=== PATIENT | male | born 1935 | race Caucasian/White ===

== ENCOUNTER 2016-11-26 12:34 | Emergency (ER) | payer MEDICARE ==
[2016-11-26 12:50] VITALS: PULSE 71
[2016-11-26] MEDS ORDERED: Adacel Vial IM ONE ×2 (12:56→13:21)
[2016-11-26] MEDS ORDERED: KEFZOL 1 GM/50 ML PREMIX** 50 ML IV ONE ×2 (12:56→13:18)
[2016-11-26 13:29] LABS: BASOPHIL % 0.7 % (0.0-0.4); Granulocytes % 61.5 % (36.0-66.0); Lymphocytes % 17.8 % (24.0-44.0); Mean Cell Volume 104.3 fl (78-100); Mean Platelet Volume 13.1 fl (6-9.5); Red Blood Count 3.48 M/mm3 (4.1-5.6); Red Cell Distribution Width 16.5 % (11.5-14.0); White Blood Count 4.4 K/mm3 (4.0-10.5)
[2016-11-26 13:44] LABS: ANION GAP 10.4 MEQ/L (5-15); BLOOD UREA NITROGEN 18 mg/dL (9-20); CHLORIDE 100 mEq/L (98-107); Glucose 168 MG/DL (70-110); Potassium 4.5 mEq/L (3.5-5.1); SODIUM 137 mEq/L (136-145)
--- NOTE | 2016-11-26 13:46 | ERPHSYRPT ---
- History of Present Illness Time Seen by Provider: 11/26/16 12:52 Source: patient, family Patient Subjective Stated Complaint: Pt states he had a knot show up on his right forearm. Pt states it is very painful and looks much worse now than it did earlier. Pt states it was bleeding and had a little pus coming out of it this morning. Triage Nursing Assessment: Pt alert and oriented x3. skin pink warm and dry. afebrile. large erythmatic, inflamed area on left forearm. hot and tender to touch. no drainage noted at this time Physician History: CC: redness left arm Hx: 81 y/o patient of dr Maddox with hx of DM. He had left arm area that raised , became red, and drained some clear pus. No fever or chills. Unsure last tetanus vaccine. Started last night. Occurred: other (yesterday) Severity of Pain-Max: moderate Severity of Pain-Current: mild Allergies/Adverse Reactions: No Known Drug Allergies Allergy (Verified 11/26/16 12:42) Home Medications: Morphine Sulfate [Morphine Sulfate ER] 60 mg PO Q4H 08/01/14 [History] Rosuvastatin Calcium [Crestor] 20 mg PO HS 08/01/14 [History] Pioglitazone HCl 30 mg PO DAILY 07/18/15 [History] Polyethylene Glycol 3350 [Miralax] 17 gm PO BIDPRN PRN 07/18/15 [History] Gabapentin [Neurontin] 300 mg PO TID 02/14/16 [History] Insulin Glargine [Lantus Insulin] 50 unit SQ DAILY 02/14/16 [History] Metoprolol Tartrate 50 mg [Lopressor 50 MG] 50 mg PO BID 02/14/16 [History ] Amiodarone HCl 200 mg [Cordarone 200 MG] 200 mg PO DAILY 11/26/16 [History ] Apixaban [Eliquis] 2.5 mg PO BID 11/26/16 [History] Enalapril Maleate 5 mg [Vasotec 5 MG] 15 mg PO DAILY 11/26/16 [History] Fluticasone Propionate [Flonase NASAL] 2 puff NS UD PRN 11/26/16 [History] Furosemide 40 mg [Lasix 40 MG] 40 mg PO DAILY 11/26/16 [History] Insulin Aspart [NovoLOG Insulin] 1 unit SQ UD PRN 11/26/16 [History] Omeprazole 20 MG [Prilosec 20 mg] 20 mg PO BID 11/26/16 [History] Oxycodone / APAP 10/325 mg [Oxycodone-Acetaminophen 10-325] 1 tab PO Q4HPRN PRN 11/26/16 [History] Potassium Chloride 10 Meq Tab* [Klor Con 10 MEQ] 10 meq PO BID 11/26/16 [ History] Ranitidine HCl [Zantac] 300 mg PO DAILY 11/26/16 [History] Hx Tetanus, Diphtheria Vaccination/Date Given: Yes (<5 years) Hx Influenza Vaccination/Date Given: Yes Hx Pneumococcal Vaccination/Date Given: No - Review of Systems Constitutional: No Fever, No Chills Eyes: No Symptoms Ears, Nose, & Throat: No Symptoms Respiratory: No Cough Cardiac: No Chest Pain Abdominal/Gastrointestinal: No Abdominal Pain Skin: Skin Lesions Neurological: No Focal Weakness, No Parasthesia All Other Systems: Reviewed and Negative - Past Medical History Pertinent Past Medical History: Yes Neurological History: No Pertinent History ENT History: No Pertinent History Cardiac History: High Cholesterol, Hypertension Respiratory History: No Pertinent History Endocrine Medical History: Diabetes Type II Musculoskeletal History: Arthritis, Fractures GI Medical History: GERD, Other History: No Pertinent History Psycho-Social History: No Pertinent History Male Reproductive Disorders: No Pertinent History Other Medical History: pt c/o stomach pain that radiates - Past Surgical History Past Surgical History: Yes Neuro Surgical History: No Pertinent History Cardiac: CABG Respiratory: No Pertinent History Gastrointestinal: Cholecystectomy Genitourinary: No Pertinent History Musculoskeletal: Joint Replacement Male Surgical History: No Pertinent History Other Surgical History: BOTH KNEE REPLACEMENT - Social History Smoking Status: Current some day smoker How long have you smoked: 40 yrs Exposure to second hand smoke: Yes Alcohol Use: None Drug Use: none Patient Lives Alone: No - Nursing Vital Signs Nursing Vital Signs: Initial Vital Signs Temperature 99.1 F Temperature Source Oral Pulse Rate 71 Respiratory Rate 20 Blood Pressure [Right Arm] 128/69 Pain Intensity 4 - Physical Exam General Appearance: alert Eyes, Ears, Nose, Throat Exam: normal ENT inspection, moist mucous membranes Neck Exam: normal inspection, non-tender, supple Cardiovascular/Respiratory Exam: chest non-tender, regular rate/rhythm Abdominal Exam: non-tender, soft Neuro/Tendon Exam: normal sensation, normal motor functions Mental Status Exam: alert, oriented x 3, cooperative Skin Exam: warm, dry, other (left arm has redness, mild bruising. Small area of skin sloughing. No fluctuance. Normal pulse and ROm.) SpO2: 98 Oxygen Delivery: Room Air - Course Nursing assessment & vital signs reviewed: Yes Ordered Tests: Active Orders 24 hr Category Date Time Status IV Insertion STAT Care 11/26/16 12:55 Active BLOOD CULTURE Stat Lab 11/26/16 13:20 Received BMP Stat Lab 11/26/16 13:15 Completed CBC W DIFF Stat Lab 11/26/16 13:15 Completed Lactic Acid Urgent Lab 11/26/16 13:20 Completed Medication Summary Discontinued Medications Generic Name Dose Route Start Last Admin Trade Name Freq PRN Reason Stop Dose Admin Diphtheria/Tetanus/Acell Pertussis 0.5 ml 11/26/16 12:56 11/26/16 13:19 Adacel Vial IM 11/26/16 12:57 0.5 ml .ONCE ONE Administration Diphtheria/Tetanus/Acell Pertussis Confirm 11/26/16 13:21 Adacel Vial Administered 11/26/16 13:22 Dose 0.5 ml IM .STK-MED ONE Cefazolin Sodium/Dextrose 50 mls @ 100 mls/hr 11/26/16 12:56 11/26/16 13:19 Kefzol 1 Gm/50 Ml Premix IV 11/26/16 13:25 100 mls/hr STAT ONE Administration Cefazolin Sodium/Dextrose Confirm 11/26/16 13:18 Kefzol 1 Gm/50 Ml Premix Administered 11/26/16 13:19 Dose 50 mls @ ud IV .STK-MED ONE Lab/Rad Data: Laboratory Result Diagrams 11/26/16 13:15 11/26/16 13:15 Laboratory Results 11/26/16 11/26/16 11/26/16 Range/Units 13:20 13:15 13:15 WBC 4.4 (4.0-10.5) K/mm3 RBC 3.48 L (4.1-5.6) M/mm3 Hgb 11.5 L (12.5-18.0) gm/dl Hct 36.3 L (42-50) % MCV 104.3 H (78-100) fl MCH 33.0 H (26-32) pg MCHC 31.7 L (32-36) g/dl RDW 16.5 H (11.5-14.0) % Plt Count 62 L (150-450) K/mm3 MPV 13.1 H (6-9.5) fl Gran % 61.5 (36.0-66.0) % Lymphocytes % 17.8 L (24.0-44.0) % Monocytes % 20.0 H (0.0-12.0) % Eosinophils % 0.0 (0.00-5.0) % Basophils % 0.7 (0.0-0.4) % Basophils # 0.03 (0-0.4) Sodium 137 (136-145) mEq/L Potassium 4.5 (3.5-5.1) mEq/L Chloride 100 (98-107) mEq/L Carbon Dioxide 31.0 (21-32) mEq/L Anion Gap 10.4 (5-15) MEQ/L BUN 18 (9-20) mg/dL Creatinine 1.11 (0.55-1.30) mg/dl Estimated GFR > 60 ML/MIN Glucose 168 H (70-110) MG/DL Lactic Acid 1.7 (0.4-2.0) Calcium 9.0 (8.5-10.1) mg/dL - Progress Progress Note: 11/26/16 14:41 The patient is stable. Will treat as cellulitis. IV kefzol given here. Will release with instr 11/26/16 14:42 Pt has chronic thrombocytopenia unchanged. Counseled pt/family regarding: lab results, diagnosis, need for follow-up - Departure Time of Disposition: 14:42 Departure Disposition: Home Clinical Impression: Cellulitis of left arm, Type 2 diabetes mellitus Condition: Stable Critical Care Time: No Referrals: BIPIN MADDOX [Primary Care Provider] - Instructions: Cellulitis -- Adult Additional Instructions: Warm compresses three times a day. See KADI Post Tuesday at 2:00 PM. Return for fever, chills, worsening. Rx doxycycline and keflex. Prescriptions: Cephalexin Mh 500 mg [Keflex 500 mg] 1 cap PO QID #40 capsule Doxycycline Monohydrate 1 cap PO BID #20 capsule
[2016-11-26 13:58] LABS: Platelet Count 62 K/mm3 (150-450)
[2016-11-26 15:05] VITALS: BP 112/73; O2SAT 95
== END 2016-11-26 15:05 | disposition home or self-care (01) ==
LOC: ED 12:34
DX: L03.114 Cellulitis of left upper limb (principal); E11.9 Type 2 diabetes mellitus without complications; Z79.4 Long term (current) use of insulin; Z79.01 Long term (current) use of anticoagulants; Z79.899 Other long term (current) drug therapy; Z95.1 Presence of aortocoronary bypass graft; E78.00 Pure hypercholesterolemia, unspecified; I10 Essential (primary) hypertension
CPT/HCPCS: 36000; 36415; 80048; 83605; 85025; 87040; 90471; 90715; 96360; 99283; J0690

== ENCOUNTER 2016-12-01 11:25 | Inpatient (IN) | payer MEDICARE ==
[2016-12-01] MEDS ORDERED: Sodium Chloride 0.9% 10 ML FLUSH Syringe IV PRN (12:10)
[2016-12-01] MEDS ORDERED: TYLENOL 325 MG PO PRN (12:12)
[2016-12-01] MEDS: ROCEPHIN 1 Gm-D5w 50 ml Bag** 50 ML IV SCH (12:22)
[2016-12-01 12:23] LABS: Mean Cell Volume 103.7 fl (78-100); Mean Platelet Volume 12.3 fl (6-9.5); Platelet Count 95 K/mm3 (150-450); Red Blood Count 3.51 M/mm3 (4.1-5.6); Red Cell Distribution Width 16.1 % (11.5-14.0)
[2016-12-01 12:33] LABS: White Blood Count 1.7 K/mm3 (4.0-10.5)
[2016-12-01 12:49] LABS: ALBUMIN 2.8 g/dL (3.4-5.0); ALKALINE PHOSPHATASE 103 U/L (46-116); BILIRUBIN,TOTAL 0.5 mg/dL (0.2-1.0); BLOOD UREA NITROGEN 10 mg/dL (9-20); CHLORIDE 103 mEq/L (98-107); Carbon Dioxide 27.1 mEq/L (21-32); Glucose 237 MG/DL (70-110); Potassium 4.3 mEq/L (3.5-5.1); SGOT/AST 64 U/L (15-37); SGPT/ALT 48 U/L (12-78); SODIUM 138 mEq/L (136-145); Total Protein 7.3 gm/dL (6.4-8.2)
[2016-12-01 13:26] LABS: BAND 5 % (0.0-2.0); Total Cells Counted 100
[2016-12-01] MEDS: VANCOCIN 1 GM VIAL*** 1.5 GM in Sodium Chloride 0.9% 500 ML 500 ML IV SCH (13:27)
[2016-12-01] MEDS ORDERED: Miralax Powder 17GM PACKET PO PRN (13:28)
[2016-12-01] MEDS ORDERED: Flonase NASAL NS PRN (13:28)
[2016-12-01] MEDS: Sodium Chloride 0.9% 10 ML FLUSH Syringe IV SCH (13:30)
[2016-12-01] MEDS ORDERED: MORPHINE SULFATE 60 MG PO SCH (13:30)
[2016-12-01 13:35] LABS: ANISOCYTOSIS 2+; Polychromasia 1+
[2016-12-01 13:36] LABS: Macrocytosis 1+
[2016-12-01 13:37] LABS: Platelet Estimate DECREASED (NORMAL)
[2016-12-01] MEDS ORDERED: MSIR 15 MG PO PRN (13:56)
[2016-12-01] MEDS: NEURONTIN 300 MG PO SCH ×2 (13:59→22:34)
[2016-12-01] MEDS: NovoLOG Insulin SQ PRN (17:53)
[2016-12-01] MEDS ORDERED: Ambien 5 MG Tablet PO PRN (18:10)
[2016-12-01] MEDS ORDERED: NON-FORMULARY ITEM (Rosuvastatin Calcium [Crestor] 20 MG) PO SCH (22:00)
[2016-12-01] MEDS ORDERED: NON-FORMULARY ITEM (Omeprazole 20 Mg [Prilosec 20 Mg] 20 MG) PO SCH (22:00)
[2016-12-01] MEDS: Lopressor 50 MG PO SCH (22:34)
[2016-12-01] MEDS: ZOCOR 20MG PO SCH (22:35)
[2016-12-01] MEDS: Klor Con 10 MEQ PO SCH (22:35)
[2016-12-01] MEDS: ELIQUIS PO SCH (22:36)
[2016-12-01] MEDS: Lantus Insulin SQ SCH (22:37)
[2016-12-01] MEDS: Protonix 40MG Tablet PO SCH (22:37)
[2016-12-01] MEDS: OXYCODONE-ACETAMINOPHEN 10-325 PO PRN (22:41)
[2016-12-02] MEDS: Sodium Chloride 0.9% 10 ML FLUSH Syringe IV SCH ×4 (01:00→21:48)
--- NOTE | 2016-12-02 08:48 | HP ---
HISTORY OF PRESENT ILLNESS: This is a 81 y/o patient who presented to the clinic to see Aneta Post today and he is having trouble with his cellulitis of his left arm. He reports he had already been to the Emergency Department and her clinic for treatment and had been on 3 different antibiotics without much improvement. He has risk factors of diabetes, so I saw the patient while he was over in the clinic and it was decided that he needed to come in to the hospital for further evaluation and treatment. I ordered a CBC and he was found to be pancytopenic on that and then when he first came in, his BP was extremely elevated, but when they rechecked his BP it has come down. The patient reports that the wound hasn't really drained much. His skin is very thin. He is fully anticoagulated, but he can't remember exactly what he is anticoagulated for. He denied any fever. No nausea or vomiting. Doesn't have too much pain at the site, but the redness has come up his arm and his arm was swollen on the left side as well. REVIEW OF SYSTEMS: As noted in the history of present illness. PAST MEDICAL HISTORY: Coronary artery disease status post bypass. He is not for sure why he is on the anticoagulation. Diabetes mellitus type 2, chronic pain, hypothyroidism. PAST SURGICAL HISTORY: Coronary artery bypass surgery, left leg surgery, right leg surgery, cholecystectomy, right and left shoulder surgery, and nodule removed from his back. SOCIAL HISTORY: He smokes 1 pack q 3-4 days. Denies any alcohol use. He lives with his son. FAMILY HISTORY: His mother when the patient was 6 years old from TB. His father from a myocardial infarction. CURRENT MEDICATIONS: Amiodarone 200 mg PO daily, Eliquis 2.5 mg PO bid, Enalapril 15 mg PO daily, fluticasone 2 puffs into each nostril PRN, furosemide 40 mg PO daily, gabapentin 300 mg PO tid, NovoLog he uses a sliding scale. Lantus 50 units q evening, levothyroxine 50 mcg PO daily, metoprolol tartrate 50 mg PO bid, morphine ER 60 mg qid PRN, but the patient reports he has not taken this for 2 weeks, omeprazole 20 mg PO bid, oxycodone with acetaminophen 10/325 1 tab q 4 h PRN, pioglitazone 30 mg PO daily, MiraLAX 17 Gm PO bid PRN constipation, potassium chloride 10 mEq PO bid, ranitidine 300 mg PO daily, Crestor 20 mg PO q HS. ALLERGIES: NKDA. PHYSICAL EXAMINATION: VITAL SIGNS: Temperature current 97.9, temperature maximum 98.5, heart rate 48-50, respiratory rate 18-22, O2 saturation 95% on room air, BP 164-221/74-87, currently 170/76, weight 96.7 Kg. GENERAL: The patient is a pleasant, talkative man sitting up in no acute distress. CVS: He is bradycardic with a normal rhythm. CHEST: Clear to auscultation bilaterally. No crackles or wheezes. ABDOMEN: Soft, nontender, nondistended with normal bowel sounds. EXTREMITIES: No clubbing, cyanosis, or edema. On his left arm, he has a 5 X 0.25 cm excoriation with some surrounding erythema as well as swelling. The swelling has even improved since he came here though. There is no induration. No drainage. No fluctuance. LABORATORY DATA: WBC 1.7, Hgb 11.6, platelet count 95, glucose 237. Hgb A1C 6.8. Lactic acid 1.2. ASSESSMENT AND PLAN: 1. LEFT ARM CELLULITIS. He was started on ceftriaxone and vancomycin. Physical therapy was consulted and has seen him. Will continue with IV antibiotics. Dr. Maddox is his regular doctor, so he will see him tomorrow for further care and management. 2. DIABETES MELLITUS TYPE 2. Will continue with Lantus and a sliding scale and holding his pioglitazone. 3. HYPERTENSION. He may need his BP medicines adjusted. They won't be able to increase his metoprolol as his heart rate is less than 60. 4. HISTORY OF CORONARY ARTERY DISEASE. Will continue on his anticoagulation and his current medications. 5. CHRONIC PAIN. He states he is not taking the morphine, so we are just going to discontinue that and have him use the Percocet PRN. 6. TOBACCO ABUSE. The patient has been counseled that he needs to quit smoking. He denies needing a nicotine patch.
--- NOTE | 2016-12-02 08:48 | CONS ---
CONSULT DATE: 12/01/2016 REASON FOR CONSULT: Pancytopenia. HISTORY: Silverio Grijalva is a 81 year-old white male found to have pancytopenia. The patient was admitted today with left arm cellulitis. The patient states that it started with a small pustule and got bigger and became red, painful and swollen to the left arm. He got to the hospital and the patient was found to have left arm cellulitis and started on antibiotics. Today routine blood tests showed white blood cell 1.7, hemoglobin 11.6, MCV 103, PLT 95,000. I was asked to see the patient for further evaluation and treatment. REVIEW OF SYSTEMS: The patient states that he was diagnosed with pancytopenia six months ago. He was seen in [place] once by a blood specialist but does not remember the name of the doctor. The patient denies any nausea, vomiting, abdominal pain, diarrhea, constipation, urinary problem, bleeding, sore throat, headache according to the patient. PAST MEDICAL HISTORY: Includes benign essential hypertension and history of heart problems and diabetes mellitus, diabetic neuropathy, hypothyroidism, gastroesophageal reflux disease, hypercholesterolemia. PAST SURGICAL HISTORY: HOME MEDICATIONS: Amiodarone 200 mg daily, Eliquis 2.5 mg b.i.d., Enalapril 5 mg daily, fluticasone 2 puffs, Furosemide 40 mg, gabapentin 300 mg, insulin, metoprolol 50 mg b.i.d., levothyroxine 50 mcg daily, morphine 60 mg every four hours PRN, omeprazole 20 mg b.i.d. ALLERGIES: NKDA. SOCIAL HISTORY: The patient denies alcohol or illicit drug abuse, no cigarettes. FAMILY HISTORY: Noncontributory. PHYSICAL EXAMINATION: A moderately built, alert, oriented pleasant, cooperative, not in distress. SKIN: No cyanosis. No clubbing. NECK: Supple. No raise in JVD. Lymph nodes not palpable. LUNGS: Bilaterally clear. HEART: Heart sounds distant. ABDOMEN: Soft, bowel sounds present. No hepatosplenomegaly. EXTREMITIES: No edema. In the left arm there is cellulitis and below the left cubital fossa the patient has streak of redness and warmth looks like infection with cellulitis. PHYSICAL MEDICINE TEACHER: Nonfocal. LAB DATA AND TESTS: CT of the abdomen and pelvis in 07/18/2015 showed large effusion in the right lung. There is new small perihepatic, perisplenic, and bilateral pericolic free fluid. No free air. New 5 mm nonobstructing right lower pole renal calculi. The remaining liver, pancreas, adrenal glands, left kidney, both ureters, bladder appear unremarkable. Heavy calcification of the aortoiliac vessels. No abdominal aortic aneurysm. No pathologic retroperitoneal lymphadenopathy. White blood cell 1.7, hemoglobin 11.6, MCV 103, PLT 95,000. Hemoglobin A1C 6.8. BUN 10, creatinine 0.9, glucose 237, sodium 138, potassium 4.3, BUN 10, creatinine 0.9, total bilirubin 0.5, AST 64, ALT 48, alkaline phosphatase 103. IMPRESSION: Pancytopenia. I discussed with the patient about the differential diagnosis, possible pathology including myelodysplastic syndrome. I discussed with the patient other differential diagnosis including hypersplenism. I discussed with the patient about further management including bone marrow aspiration and biopsy for further diagnostic purpose. I discussed about the potential risk of pancytopenia including infection, bleeding and anemia problems. The patient understood. At this time the patient has borderline pancytopenia and at this time the patient will continue IV antibiotics and other medications as recommended by his primary care physician. Once the patient is improves his infection I will follow him as an outpatient in three to four weeks and if pancytopenia is not improving then I will consider bone marrow aspiration and biopsy for diagnostic purpose. Once we know the definite diagnosis I will give my final recommendation. The patient understood and his questions were answered.
[2016-12-02 09:06] LABS: Mean Cell Volume 103.8 fl (78-100); Mean Corpuscular Hemoglobin 32.8 pg (26-32); Mean Platelet Volume 12.2 fl (6-9.5); Platelet Count 98 K/mm3 (150-450); Red Blood Count 3.41 M/mm3 (4.1-5.6); Red Cell Distribution Width 16.1 % (11.5-14.0)
[2016-12-02] MEDS: ROCEPHIN 1 Gm-D5w 50 ml Bag** 50 ML IV SCH (09:44)
[2016-12-02] MEDS: Pepcid 20 MG PO SCH (09:47)
[2016-12-02] MEDS: Lasix 40 MG PO SCH (09:47)
[2016-12-02] MEDS: ELIQUIS PO SCH ×2 (09:47→21:45)
[2016-12-02] MEDS: Lopressor 50 MG PO SCH ×2 (09:48→21:44)
[2016-12-02] MEDS: Vasotec 5 MG PO SCH (09:48)
[2016-12-02] MEDS: SYNTHROID 50 MCG PO SCH (09:49)
[2016-12-02] MEDS: Cordarone 200 MG PO SCH (09:49)
[2016-12-02] MEDS: Protonix 40MG Tablet PO SCH ×2 (09:49→21:46)
[2016-12-02] MEDS: NEURONTIN 300 MG PO SCH ×3 (09:49→21:46)
[2016-12-02] MEDS: Klor Con 10 MEQ PO SCH ×2 (09:49→21:46)
[2016-12-02] MEDS: OXYCODONE-ACETAMINOPHEN 10-325 PO PRN ×2 (09:57→20:33)
[2016-12-02] MEDS ORDERED: FLUZONE HIGH-DOSE 2016-17 SYR IM ONE (10:00)
[2016-12-02] MEDS ORDERED: NON-FORMULARY ITEM (Ranitidine Hcl [Zantac] 300 MG) PO SCH (10:00)
[2016-12-02] MEDS: VANCOCIN 1 GM VIAL*** 1.5 GM in Sodium Chloride 0.9% 500 ML 500 ML IV SCH (10:53)
[2016-12-02] MEDS: NovoLOG Insulin SQ PRN ×2 (12:16→21:48)
[2016-12-02] MEDS: ZOCOR 20MG PO SCH (21:44)
[2016-12-02] MEDS: Lantus Insulin SQ SCH (21:49)
[2016-12-03] MEDS: OXYCODONE-ACETAMINOPHEN 10-325 PO PRN ×2 (00:35→05:24)
[2016-12-03] MEDS: Sodium Chloride 0.9% 10 ML FLUSH Syringe IV SCH (05:25)
[2016-12-03 05:33] LABS: Mean Cell Volume 102.1 fl (78-100); Mean Corpuscular Hemoglobin 33.1 pg (26-32); Mean Platelet Volume 11.9 fl (6-9.5); Platelet Count 100 K/mm3 (150-450); Red Blood Count 3.35 M/mm3 (4.1-5.6); Red Cell Distribution Width 16.2 % (11.5-14.0); White Blood Count 2.2 K/mm3 (4.0-10.5)
[2016-12-03] MEDS: NovoLOG Insulin SQ PRN (07:18)
[2016-12-03 08:42] VITALS: PULSE 44
--- NOTE | 2016-12-03 08:46 | PCM.DCORD ---
- Discharge Discharge Date: 12/03/16 Disposition: Home, Self-Care Condition: Stable Prescriptions: Continue Rosuvastatin Calcium [Crestor] 20 mg PO HS Pioglitazone HCl 30 mg PO DAILY Polyethylene Glycol 3350 [Miralax] 17 gm PO BIDPRN PRN PRN Reason: Constipation Levothyroxine Sodium 50 Mcg [Synthroid 50 Mcg] 50 mcg PO DAILY #0 tablet Metoprolol Tartrate 50 mg [Lopressor 50 MG] 50 mg PO BID Insulin Glargine [Lantus Insulin] 50 unit SQ HS Gabapentin [Neurontin] 300 mg PO TID Amiodarone HCl 200 mg [Cordarone 200 MG] 200 mg PO DAILY Furosemide 40 mg [Lasix 40 MG] 40 mg PO DAILY Enalapril Maleate 5 mg [Vasotec 5 MG] 15 mg PO DAILY Apixaban [Eliquis] 2.5 mg PO BID Omeprazole 20 MG [Prilosec 20 mg] 20 mg PO BID Ranitidine HCl [Zantac] 300 mg PO DAILY Insulin Aspart [NovoLOG Insulin] 1 unit SQ UD PRN PRN Reason: Hyperglycemia Oxycodone / APAP 10/325 mg [Oxycodone-Acetaminophen 10-325] 1 tab PO Q4HPRN PRN PRN Reason: Pain Potassium Chloride 10 Meq Tab* [Klor Con 10 MEQ] 10 meq PO BID Fluticasone Propionate [Flonase NASAL] 2 puff NS UD PRN PRN Reason: congestion Morphine Sulfate Cr 60 mg [Ms Contin 60 mg] 60 mg PO Q4H PRN PRN PRN Reason: Pain Instructions: Cellulitis -- Adult, Quit Smoking Additional Instructions: PLease be at the outpatient infusion center at 0730am on 12-04-16, 12-05-16 and . You will be receiving IV antibiotics, You are to follow up with Dr. Maddox on Tuesday in the office, please cont home medicines as prescribed. Follow up with: BIPIN MADDOX [Primary Care Provider] - 12/10/16 9:30 am LYUBOV CAMARENA [COURTESY STAFF] - 12/27/16 11:00 am Forms: Patient Portal Information
[2016-12-03] MEDS: ROCEPHIN 1 Gm-D5w 50 ml Bag** 50 ML IV SCH (08:57)
[2016-12-03] MEDS: Lopressor 50 MG PO SCH (08:57)
[2016-12-03] MEDS: Pepcid 20 MG PO SCH (08:58)
[2016-12-03] MEDS: Lasix 40 MG PO SCH (08:58)
[2016-12-03] MEDS: NEURONTIN 300 MG PO SCH (08:58)
[2016-12-03] MEDS: Vasotec 5 MG PO SCH (08:58)
[2016-12-03] MEDS: Protonix 40MG Tablet PO SCH (08:58)
[2016-12-03] MEDS: Klor Con 10 MEQ PO SCH (08:58)
[2016-12-03] MEDS: SYNTHROID 50 MCG PO SCH (08:58)
[2016-12-03] MEDS: Cordarone 200 MG PO SCH (08:59)
[2016-12-03] MEDS: ELIQUIS PO SCH (09:01)
[2016-12-03] MEDS: VANCOCIN 1 GM VIAL*** 1.5 GM in Sodium Chloride 0.9% 500 ML 500 ML IV SCH (09:35)
[2016-12-03] MEDS ORDERED: Bactroban OINTMENT TP SCH (10:00)
--- NOTE | 2016-12-03 10:01 | DS ---
DISCHARGE DIAGNOSES: 1) CELLULITIS LEFT FOREARM. 2) PANCYTOPENIA. 3) DIABETES MELLITUS TYPE 2. 4) CHRONIC LOW BACK PAIN. CONSULTANTS: Oncology. HOSPITAL COURSE: The patient is a 81 year-old white male patient who presented to the office. He was noted to have significant area of opening almost eschar looking on his left anterior surface of his forearm. Redness extending from his elbow all the way to his wrist. The patient was admitted to the hospital for IV antibiotic treatments. He was given IV Rocephin and Vancomycin. He was seen in consultation by Dr. Sainz for pancytopenia. Dr. Sainz wished to see him as an outpatient for outpatient bone marrow biopsy. The patient was initially put in reverse isolation as well but he was felt to be able to be taken out reverse isolation. His hemoglobin on discharge was 11.1, PLT count 100,000 and his white blood cell count was up to 2,200. The patient otherwise had no other problems during his stay. He was felt to be ready for discharge home but to continue his IV antibiotics as an outpatient on a daily basis for the next three days as he has shown improvement but is not completely well at this point. We will also use Bactroban ointment on the wound twice daily. We will see him in the office in follow up in three days to consider how much longer we might need to continue the treatments. No culture reports are back at this point in time to help guide the therapy.
[2016-12-03 12:46] VITALS: BP 146/65; O2SAT 91
[2016-12-04] MEDS ORDERED: TROUGH DRUG LEVELS IJ ONE (09:30)
== END 2016-12-03 13:35 | disposition home or self-care (01) | DRG 603 ==
LOC: MED SURG 11:36
PROVIDERS: ADMIT Internal Medicine; ATTEND Family Medicine
DX: L03.114 Cellulitis of left upper limb (principal); D61.818 Other pancytopenia; I25.810 Atherosclerosis of coronary artery bypass graft(s) without angina pectoris; E11.40 Type 2 diabetes mellitus with diabetic neuropathy, unspecified; Z79.4 Long term (current) use of insulin; M54.5 Low back pain; G89.29 Other chronic pain; I10 Essential (primary) hypertension; E03.9 Hypothyroidism, unspecified; K21.9 Gastro-esophageal reflux disease without esophagitis; E78.00 Pure hypercholesterolemia, unspecified; Z79.01 Long term (current) use of anticoagulants; Z79.899 Other long term (current) drug therapy; Z72.0 Tobacco use
CPT/HCPCS: 36415; 80053; 82962; 83036; 83605; 85025; 85027; J0696; J3370

== ENCOUNTER 2017-01-09 13:16 | Emergency (ER) | payer MEDICARE ==
[2017-01-09 13:39] VITALS: O2SAT 95
[2017-01-09] MEDS ORDERED: Rocephin 1000 MG INJ IV STA ×2 (13:48)
[2017-01-09] MEDS ORDERED: TYLENOL 325 MG PO STA (13:48)
[2017-01-09] MEDS ORDERED: Sodium Chloride 0.9% 1000 ML 1,000 ML IV STA (13:48)
--- NOTE | 2017-01-09 13:51 | ERPHSYRPT ---
- History of Present Illness Time Seen by Provider: 01/09/17 13:50 Source: patient, family Exam Limitations: no limitations Patient Subjective Stated Complaint: burning with urination for two days, weakness Triage Nursing Assessment: ambulated to room per self. skin pale, w/d. a/o times three. urine cloudy and very foul smelling. Physician History: burning with urination for two days, weakness Timing/Duration: day(s) (2-3 days) Fever Severity: moderate Fever Therapy FLAT EXAMINER: none Associated Symptoms: weakness International travel in last 2 weeks: No Allergies/Adverse Reactions: promethazine Allergy (Verified 01/09/17 14:11) Home Medications: Rosuvastatin Calcium [Crestor] 20 mg PO HS 08/01/14 [History] Polyethylene Glycol 3350 [Miralax] 17 gm PO DAILY 07/18/15 [History] Insulin Glargine [Lantus Insulin] 50 unit SQ DAILY 02/14/16 [History] Metoprolol Tartrate 50 mg [Lopressor 50 MG] 50 mg PO BID 02/14/16 [History ] Omeprazole 20 MG [Prilosec 20 mg] 20 mg PO BID 11/26/16 [History] Oxycodone / APAP 10/325 mg [Oxycodone-Acetaminophen 10-325] 1 tab PO Q6HPRN PRN 11/26/16 [History] Dicyclomine HCl 20 mg [Bentyl 20 mg] 20 mg PO QID 12/08/16 [History] Enalapril Maleate 10 mg [Vasotec 10 MG] 15 mg PO DAILY 12/08/16 [History] Sucralfate 1 gm [Carafate 1 GM] 1 gm PO ACHS 12/08/16 [History] Insulin Lispro [Humalog Kwikpen U-100] 15 unit SQ TID 01/09/17 [History] Pioglitazone HCl [Actos] 15 mg PO DAILY 01/09/17 [History] Hx Tetanus, Diphtheria Vaccination/Date Given: Yes (<5 years) Hx Influenza Vaccination/Date Given: Yes Hx Pneumococcal Vaccination/Date Given: Yes - Review of Systems Constitutional: Fever, No Chills Eyes: No Symptoms Ears, Nose, & Throat: No Symptoms Respiratory: No Cough, No Dyspnea Cardiac: No Chest Pain, No Edema, No Syncope Abdominal/Gastrointestinal: No Abdominal Pain, No Nausea, No Vomiting, No Diarrhea Genitourinary Symptoms: No Dysuria Musculoskeletal: No Back Pain, No Neck Pain Skin: No Rash Neurological: No Dizziness, No Focal Weakness, No Sensory Changes Psychological: No Symptoms Endocrine: No Symptoms All Other Systems: Reviewed and Negative - Past Medical History Pertinent Past Medical History: Yes Neurological History: No Pertinent History ENT History: No Pertinent History Cardiac History: High Cholesterol, Hypertension Respiratory History: No Pertinent History Endocrine Medical History: Diabetes Type II Musculoskeletal History: Arthritis, Fractures GI Medical History: GERD, Other History: No Pertinent History Psycho-Social History: No Pertinent History Male Reproductive Disorders: No Pertinent History Other Medical History: pt c/o stomach pain that radiates - Past Surgical History Past Surgical History: Yes Neuro Surgical History: No Pertinent History Cardiac: CABG Respiratory: No Pertinent History Gastrointestinal: Cholecystectomy Genitourinary: No Pertinent History Musculoskeletal: Joint Replacement Male Surgical History: No Pertinent History Other Surgical History: BOTH KNEE REPLACEMENT - Social History Smoking Status: Current every day smoker How long have you smoked: 30 Exposure to second hand smoke: Yes Alcohol Use: None Drug Use: none Patient Lives Alone: No - Nursing Vital Signs Nursing Vital Signs: Initial Vital Signs Temperature 101.9 F Temperature Source Oral Pulse Rate 74 Respiratory Rate 16 Blood Pressure [] 155/66 Pain Intensity 5 - Physical Exam General Appearance: no apparent distress, alert Eye Exam: PERRL/EOMI ENT Exam: normal ENT inspection, No pharyngeal erythema, No tonsillar exudate Neck Exam: supple, full range of motion, No meningismus Respiratory Exam: normal breath sounds, lungs clear, no respiratory distress Cardiovascular/Chest Exam: normal heart sounds, regular rate/rhythm, No murmur, No edema Gastrointestinal/Abdominal Exam: soft, non tender, no distention Extremity Exam: non-tender, normal range of motion, normal inspection, normal capillary refill Neurologic Exam: alert, oriented x 3, cooperative, print finisher II-XII nml as tested, normal mood/affect, sensation nml, No motor deficits Skin Exam: normal color, warm, dry, No rash SpO2: 95 Oxygen Delivery: Room Air - Course Nursing assessment & vital signs reviewed: Yes - Radiology Exams Chest X-ray Interpretation: Reviewed by me Ordered Tests: Active Orders 24 hr Category Date Time Status IV Insertion STAT Care 01/09/17 13:59 Active CHEST 2 VIEWS (PA AND LAT) Stat Exams 01/09/17 13:48 Taken CBC W DIFF Stat Lab 01/09/17 14:00 Completed CMP Stat Lab 01/09/17 14:00 Completed CULTURE,URINE Stat Lab 01/09/17 14:00 Received Lactic Acid Urgent Lab 01/09/17 13:48 Completed Manual Differential NC Stat Lab 01/09/17 14:00 Completed UA W/ MICROSCOPIC Stat Lab 01/09/17 14:00 Completed Medication Summary Discontinued Medications Generic Name Dose Route Start Last Admin Trade Name Freq PRN Reason Stop Dose Admin Acetaminophen 650 mg 01/09/17 13:48 01/09/17 13:58 Tylenol 325 Mg PO 01/09/17 13:49 650 mg STAT STA Administration Acetaminophen Confirm 01/09/17 13:55 Tylenol 325 Mg Administered 01/09/17 13:56 Dose 650 mg .ROUTE .STK-MED ONE Ceftriaxone Sodium mg 01/09/17 13:48 Rocephin 1000 Mg Inj IV 01/09/17 13:49 STAT STA Ceftriaxone Sodium 1,000 mg 01/09/17 13:48 01/09/17 14:22 Rocephin 1000 Mg Inj IV 01/09/17 13:49 1,000 mg STAT STA Administration Sodium Chloride 1,000 mls @ 999 mls/hr 01/09/17 13:48 01/09/17 13:58 Sodium Chloride 0.9% 1000 Ml IV 01/09/17 14:48 999 mls/hr .Q1H1M STA Administration Sodium Chloride Confirm 01/09/17 13:55 Sodium Chloride 0.9% 1000 Ml Administered 01/09/17 13:56 Dose 1,000 mls @ ud .ROUTE .STK-MED ONE Ceftriaxone Sodium/Dextrose Confirm 01/09/17 14:19 Rocephin 1 Gm-D5w 50 Ml Bag Administered 01/09/17 14:20 Dose 50 mls @ ud IV .STK-MED ONE Lab/Rad Data: Laboratory Result Diagrams 01/09/17 14:00 01/09/17 14:00 Laboratory Results 01/09/17 01/09/17 01/09/17 Range/Units 14:00 14:00 14:00 WBC 3.4 L (4.0-10.5) K/mm3 RBC 3.18 L (4.1-5.6) M/mm3 Hgb 10.4 L (12.5-18.0) gm/dl Hct 32.9 L (42-50) % MCV 103.5 H (78-100) fl MCH 32.7 H (26-32) pg MCHC 31.6 L (32-36) g/dl RDW 16.0 H (11.5-14.0) % Plt Count 78 L (150-450) K/mm3 MPV 11.7 H (6-9.5) fl Segmented Neutrophils 75 H (36.-66.) % Lymphocytes (Manual) 24 (24-44) % Monocytes (Manual) 1 (0.0-12.0) % Platelet Estimate NORMAL (NORMAL) Poikilocytosis 1+ Sodium 135 L (136-145) mEq/L Potassium 4.6 (3.5-5.1) mEq/L Chloride 100 (98-107) mEq/L Carbon Dioxide 28.9 (21-32) mEq/L Anion Gap 10.9 (5-15) MEQ/L BUN 14 (9-20) mg/dL Creatinine 1.10 (0.55-1.30) mg/dl Estimated GFR > 60 ML/MIN Glucose 194 H (70-110) MG/DL Lactic Acid (0.4-2.0) Calcium 8.6 (8.5-10.1) mg/dL Total Bilirubin 0.8 (0.2-1.0) mg/dL AST 45 H (15-37) U/L ALT 30 (12-78) U/L Alkaline Phosphatase 98 (46-116) U/L Serum Total Protein 6.8 (6.4-8.2) gm/dL Albumin 2.3 L (3.4-5.0) g/dL Ur Collection Type CLEAN CATCH Urine Color YELLOW (YELLOW) Urine Appearance CLOUDY (CLEAR) Urine pH 7.0 (5-6) Ur Specific [place] 1.020 (1.005-1.025) Urine Protein 100 (Negative) Urine Glucose (UA) NEGATIVE (NEGATIVE) mg/dL Urine Ketones NEGATIVE (NEGATIVE) Urine Nitrite NEGATIVE (NEGATIVE) Urine Bilirubin NEGATIVE (NEGATIVE) Urine Urobilinogen 4 (0-1) mg/dL Urine WBC (Auto) LARGE (NEGATIVE) Urine RBC (Auto) MODERATE (0-5) Devon/ul Urine Microscopic WBC >100 (0-5) /HPF Urine Bacteria PACKED (NEGATIVE) /HPF Specimen Received [id number] 01/09/17 Range/Units 13:48 WBC (4.0-10.5) K/mm3 RBC (4.1-5.6) M/mm3 Hgb (12.5-18.0) gm/dl Hct (42-50) % MCV (78-100) fl MCH (26-32) pg MCHC (32-36) g/dl RDW (11.5-14.0) % Plt Count (150-450) K/mm3 MPV (6-9.5) fl Segmented Neutrophils (36.-66.) % Lymphocytes (Manual) (24-44) % Monocytes (Manual) (0.0-12.0) % Platelet Estimate (NORMAL) Poikilocytosis Sodium (136-145) mEq/L Potassium (3.5-5.1) mEq/L Chloride (98-107) mEq/L Carbon Dioxide (21-32) mEq/L Anion Gap (5-15) MEQ/L BUN (9-20) mg/dL Creatinine (0.55-1.30) mg/dl Estimated GFR ML/MIN Glucose (70-110) MG/DL Lactic Acid 1.5 (0.4-2.0) Calcium (8.5-10.1) mg/dL Total Bilirubin (0.2-1.0) mg/dL AST (15-37) U/L ALT (12-78) U/L Alkaline Phosphatase (46-116) U/L Serum Total Protein (6.4-8.2) gm/dL Albumin (3.4-5.0) g/dL Ur Collection Type Urine Color (YELLOW) Urine Appearance (CLEAR) Urine pH (5-6) Ur Specific [place] (1.005-1.025) Urine Protein (Negative) Urine Glucose (UA) (NEGATIVE) mg/dL Urine Ketones (NEGATIVE) Urine Nitrite (NEGATIVE) Urine Bilirubin (NEGATIVE) Urine Urobilinogen (0-1) mg/dL Urine WBC (Auto) (NEGATIVE) Urine RBC (Auto) (0-5) Devon/ul Urine Microscopic WBC (0-5) /HPF Urine Bacteria (NEGATIVE) /HPF Specimen Received - Progress Progress: improved Counseled pt/family regarding: lab results, diagnosis, need for follow-up, rad results - Departure Time of Disposition: 14:49 Departure Disposition: Home Clinical Impression: Acute pyelonephritis Condition: Stable Critical Care Time: Yes Critical Care Time(excluding separately billable procedures): 30-74 minutes Referrals: BIPIN BLACK [Primary Care Provider] - Instructions: Kidney Infection Additional Instructions: URINARY TRACT INFECTION 1. You will need to drink plenty of fluids in order to keep your urinary system flushed. These fluids should mainly consist of water and juices. 2. Take medications as directed. You need to completely finish any antiobiotic prescription given. 3. Try to avoid coffee, tea, alcohol, and seasoned foods as they may cause bladder irritation. 4. If signs and symptoms persist after 3-4 days, you will need to follow up with your family physician. 5. Female Patients: A. Avoid intercourse for 3-4 days. B. Empty bladder before and after intercourse to reduce risk of re- infection. C. After emptying bladder, wipe from front to back to reduce the risk of re- infection. Prescriptions: Ciprofloxacin HCl 500 mg [Cipro 500 MG] 500 mg PO BID #30 tablet
[2017-01-09] MEDS ORDERED: Sodium Chloride 0.9% 1000 ML 1,000 ML ONE (13:55)
[2017-01-09] MEDS ORDERED: TYLENOL 325 MG ONE (13:55)
[2017-01-09 14:08] LABS: Mean Cell Volume 103.5 fl (78-100); Mean Corpuscular Hemoglobin 32.7 pg (26-32); Mean Platelet Volume 11.7 fl (6-9.5); Platelet Count 78 K/mm3 (150-450); Red Blood Count 3.18 M/mm3 (4.1-5.6); White Blood Count 3.4 K/mm3 (4.0-10.5)
[2017-01-09 14:18] LABS: COMPLETE URINE MICROSCOPIC? YES; Collection Type CLEAN CATCH
[2017-01-09] MEDS ORDERED: ROCEPHIN 1 Gm-D5w 50 ml Bag** 50 ML IV ONE (14:19)
[2017-01-09 14:25] LABS: Platelet Estimate NORMAL (NORMAL); Poikilocytosis 1+; Total Cells Counted 100
[2017-01-09 14:29] LABS: Bacteria PACKED /HPF (NEGATIVE); WBC >100 /HPF (0-5)
[2017-01-09 14:31] LABS: ALBUMIN 2.3 g/dL (3.4-5.0); ALKALINE PHOSPHATASE 98 U/L (46-116); ANION GAP 10.9 MEQ/L (5-15); BILIRUBIN,TOTAL 0.8 mg/dL (0.2-1.0); BLOOD UREA NITROGEN 14 mg/dL (9-20); CHLORIDE 100 mEq/L (98-107); Carbon Dioxide 28.9 mEq/L (21-32); Glucose 194 MG/DL (70-110); Potassium 4.6 mEq/L (3.5-5.1); SGOT/AST 45 U/L (15-37); SGPT/ALT 30 U/L (12-78); SODIUM 135 mEq/L (136-145); Total Protein 6.8 gm/dL (6.4-8.2)
[2017-01-09 15:23] VITALS: BP 126/68; PULSE 69
--- NOTE | 2017-01-09 21:19 | XRAY ---
Indication: Fever. Comparison: July 18, 2015. PA/lateral chest obtained. Lateral view degraded by respiration artifact. Lungs better inflated again with right middle lobe subsegmental atelectasis/scarring, focal eventration of the right hemidiaphragm, and previous CABG surgery. No focal infiltrate, consolidation, or large effusion. Heart is borderline enlarged. Bony thorax intact again with mild osteopenia and degenerative changes. Impression: Nonacute chest with chronic features.
== END 2017-01-09 15:22 | disposition home or self-care (01) ==
LOC: ED 13:16
DX: N10 Acute pyelonephritis (principal); Z79.899 Other long term (current) drug therapy
CPT/HCPCS: 96365; 99284; 36000; 96360; 81000; 36415; 87186; 85025; 87077; 80053; 87086; 71020; 83605; A9270; J0696

== ENCOUNTER 2018-04-20 21:11 | Observation (INO) | payer MEDICARE ==
--- NOTE | 2018-04-20 21:44 | ERPHSYRPT ---
- History of Present Illness Time Seen by Provider: 04/20/18 21:27 Source: patient Exam Limitations: no limitations Patient Subjective Stated Complaint: states he fell yesterday after tripping on metal on door. pain in left lower rib area. states has had intermittent dizziness x 2 days that made it difficult to get out of his chair. neuro intact. states has had similar episodes in the past. slight nausea but was able to eat [employer] with no difficulties. Triage Nursing Assessment: states he fell yesterday after tripping on metal on door. pain in left lower rib area. states has had intermittent dizziness x 2 days that made it difficult to get out of his chair. neuro intact. states has had similar episodes in the past. slight nausea but was able to eat [employer] with no difficulties. able to walk with cane. pain in palpation to left lower rib area. lungs clear bilaterally. Physician History: 82-year-old white male with history of hypercholesterolemia, high blood pressure , diabetes, arthritis, fractures, GERD, his chronic stomach pain Patient arrives with complaint of feeling weak states he is chronically dizzy he states this is worse when he stands up states that today this is worse than usual. He states that he fell yesterday he has some tenderness on the bilateral lower anterior ribs. He has no shortness of breath he has no chest pain other than rib tenderness. No vomiting no diarrhea occasional cough states his pain is worse with coughing. Patient states he is not having movement problems he has no speech problems. Past medical history includes hypercholesterolemia, high blood pressure, diabetes, arthritis, fractures, GERD, chronic stomach pain Past surgical history includes CABG, cholecystectomy, bilateral knee replacement Social history positive tobacco use Timing/Duration: yesterday (fell yesterday dizzy with standing today feels like ribs are tender anteriorly after fall) Severity: mild Modifying Factors: Improves With: nothing Associated Symptoms: abdominal pain (bilateral low rib tenderness), cough ( Occasional cough), other (feels dizzy with standing), No nausea, No vomiting, No shortness of breath, No heartburn, No diaphoresis, No chills, No chest pain, No fever, No headaches, No loss of appetite, No malaise, No rash, No syncope, No seizure, No weakness Allergies/Adverse Reactions: promethazine Allergy (Verified 04/20/18 21:36) Home Medications: Rosuvastatin Calcium [Crestor] 20 mg PO HS 08/01/14 [History] Polyethylene Glycol 3350 [Miralax] 17 gm PO DAILY 07/18/15 [History] Insulin Glargine [Lantus Insulin] 50 unit SQ DAILY 02/14/16 [History] Metoprolol Tartrate 50 mg [Lopressor 50 MG] 50 mg PO BID 02/14/16 [History ] Omeprazole 20 MG [Prilosec 20 mg] 20 mg PO BID 11/26/16 [History] Oxycodone / APAP 10/325 mg [Oxycodone-Acetaminophen 10-325] 1 tab PO Q6HPRN PRN 11/26/16 [History] Dicyclomine HCl 20 mg [Bentyl 20 mg] 20 mg PO QID 12/08/16 [History] Enalapril Maleate 10 mg [Vasotec 10 MG] 15 mg PO DAILY 12/08/16 [History] Sucralfate 1 gm [Carafate 1 GM] 1 gm PO ACHS 12/08/16 [History] Insulin Lispro [Humalog Kwikpen U-100] 15 unit SQ TID 01/09/17 [History] Pioglitazone HCl [Actos] 15 mg PO DAILY 01/09/17 [History] Hx Tetanus, Diphtheria Vaccination/Date Given: Yes (<5 years) Hx Influenza Vaccination/Date Given: Yes Hx Pneumococcal Vaccination/Date Given: Yes - Review of Systems Constitutional: Other (Dizzy with standing), No Fever, No Chills Eyes: No Symptoms Ears, Nose, & Throat: No Symptoms Respiratory: Cough (occasional cough), No Cyanosis, No Dyspnea, No Dyspnea on Exertion (RAMIRES), No Stridor, No Wheezing Cardiac: Other (bilateral rib tenderness), No Chest Pain, No Edema, No Palpitations, No Syncope, No Orthopnea, No PND Abdominal/Gastrointestinal: Abdominal Pain (bilateral lower rib tenderness anteriorly), No Nausea, No Vomiting, No Diarrhea, No Constipation, No Hematemesis, No Hematochezia, No Melena, No Dysphagia, No Appetite Changes Genitourinary Symptoms: No Dysuria Musculoskeletal: Fall (Fell yesterday), Other (bilateral lower rib tenderness), No Back Pain, No Neck Pain, No Deformity, No Joint Redness, No Joint Pain, No Joint Swelling, No Myalgias Skin: No Rash Neurological: Dizziness (Dizzy with standing chronic worse this afternoon), No Focal Weakness, No Gait Changes, No Headache, No Irritability, No Lethargy, No Paralysis, No Parasthesia, No Seizure, No Sensory Changes, No Speech Changes, No Tics, No Tremors, No Vertigo Psychological: No Symptoms Endocrine: No Symptoms All Other Systems: Reviewed and Negative - Past Medical History Pertinent Past Medical History: Yes Neurological History: No Pertinent History ENT History: No Pertinent History Cardiac History: High Cholesterol, Hypertension Respiratory History: No Pertinent History Endocrine Medical History: Diabetes Type II Musculoskeletal History: Arthritis, Fractures GI Medical History: GERD, Other History: No Pertinent History Psycho-Social History: No Pertinent History Male Reproductive Disorders: No Pertinent History Other Medical History: pt c/o stomach pain that radiates - Past Surgical History Past Surgical History: Yes Neuro Surgical History: No Pertinent History Cardiac: CABG Respiratory: No Pertinent History Gastrointestinal: Cholecystectomy Genitourinary: No Pertinent History Musculoskeletal: Joint Replacement Male Surgical History: No Pertinent History Other Surgical History: BOTH KNEE REPLACEMENT - Social History Smoking Status: Heavy tobacco smoker How long have you smoked: 30 Exposure to second hand smoke: No Alcohol Use: None Drug Use: none Patient Lives Alone: No - Nursing Vital Signs Nursing Vital Signs: Initial Vital Signs Temperature 98.7 F 04/20/18 21:18 Pulse Rate 58 L 04/20/18 21:18 Respiratory Rate 18 04/20/18 21:18 O2 Sat by Pulse Oximetry 95 04/20/18 21:18 Pain Scale Pain Intensity 0 - Physical Exam General Appearance: no apparent distress, alert Eye Exam: PERRL/EOMI, eyes nml inspection Ears, Nose, Throat Exam: normal ENT inspection, TMs normal, pharynx normal, moist mucous membranes Neck Exam: normal inspection, non-tender, supple, full range of motion Respiratory Exam: normal breath sounds, lungs clear, No respiratory distress Cardiovascular Exam: regular rate/rhythm, normal heart sounds, normal peripheral pulses, capillary refill <2 sec, other (bilateral lower anterior lower rib tenderness), No friction rub, No gallop, No tachycardia, No bradycardia, No irregular Gastrointestinal/Abdomen Exam: soft, normal bowel sounds, No tenderness, No mass Back Exam: normal inspection, normal range of motion, No CVA tenderness, No vertebral tenderness Extremity Exam: normal inspection, normal range of motion, pelvis stable Neurologic Exam: alert, oriented x 3, cooperative, automobile detailer II-XII nml as tested, normal mood/affect, nml cerebellar function, nml station & gait, sensation nml, other (patient is alert, oriented 3, cranial nerves II through XII intact, GCS equals 15. Normal finger to nose, rfid analyst equal and symmetrical 5/5 him no pronator drift, speech normal, no sensory deficits), No motor deficits, No sensory deficit Skin Exam: normal color, warm, dry, No rash SpO2 Interpretation: normal (95%) SpO2: 95 Oxygen Delivery: Room Air - Course Nursing assessment & vital signs reviewed: Yes EKG Interpreted by Me: RATE (58 bpm), Sinus Mikel, Other (EKG: Sinus bradycardia 58 bpm first-degree AV block, axisSI/QIII pattern, no acute ST or T wave changes noted) Ordered Tests: Active Orders 24 hr Category Date Time Status Bedrest with BRP/BSC Activity 04/21/18 00:21 Active Accucheck ACHS Care 04/21/18 00:21 Active Accucheck STAT Care 04/20/18 21:37 Completed Call Admit Doctor for Orders ON ADMISSION Care 04/21/18 00:21 Active Code Status Order Care 04/21/18 00:21 Active EKG-ER Only STAT Care 04/20/18 21:35 Completed IV Care Q6H Care 04/21/18 00:21 Active IV Insertion STAT Care 04/20/18 21:35 Completed Neuro Checks Q4H Care 04/21/18 00:21 Active Orthostatic Vital Signs STAT Care 04/20/18 21:[address] in Observation Care 04/21/18 00:21 Active Telemetry Q12H Care 04/21/18 00:21 Active Weight,Daily 0600 Care 04/21/18 00:21 Active 2000 Calorie ADA Diet 04/21/18 Breakfast Active CHEST 1 VIEW (PORTABLE) Stat Exams 04/20/18 22:00 Taken HEAD WITHOUT CONTRAST [CT] Stat Exams 04/21/18 00:21 Taken AMYLASE Stat Lab 04/20/18 22:15 Completed CBC W DIFF AM.LAB Lab 04/21/18 04:00 Ordered CBC W DIFF Stat Lab 04/20/18 22:15 Completed CMP AM.LAB Lab 04/21/18 04:00 Ordered CMP Stat Lab 04/20/18 22:15 Completed CULTURE,URINE Stat Lab 04/20/18 22:50 Received LIPASE Stat Lab 04/20/18 22:15 Completed PROTIME WITH INR Stat Lab 04/20/18 22:15 Completed PTT Stat Lab 04/20/18 22:15 Completed TROPONIN Q3H Lab 04/20/18 22:15 Completed TROPONIN Q3H Lab 04/21/18 00:45 Completed TROPONIN Q3H Lab 04/21/18 03:45 Ordered TROPONIN Q3H Lab 04/21/18 06:45 Ordered TROPONIN Q3H Lab 04/21/18 09:45 Ordered UA W/ MICROSCOPIC Stat Lab 04/20/18 22:50 Completed Pulse Oximetry CONTINUOUS RT 04/21/18 00:21 Active Medication Summary Generic Name Dose Route Start Last Admin Trade Name Freq PRN Reason Stop Dose Admin Sodium Chloride 1,000 mls @ 100 mls/hr 04/20/18 21:45 04/20/18 22:26 Sodium Chloride 0.9% 1000 Ml IV 05/20/18 21:44 100 mls/hr .Q10H KIRA Administration Insulin Aspart 0 unit 04/21/18 00:21 Novolog Insulin SQ 05/21/18 00:20 UD PRN HYPERGLYCEMIA Lab/Rad Data: Laboratory Result Diagrams 04/20/18 22:15 04/20/18 22:15 Laboratory Results 04/20/18 04/20/18 04/20/18 Range/Units 22:50 22:15 22:15 WBC (4.0-10.5) K/mm3 RBC (4.1-5.6) M/mm3 Hgb (12.5-18.0) gm/dl Hct (42-50) % MCV (78-100) fl MCH (26-32) pg MCHC (32-36) g/dl RDW (11.5-14.0) % Plt Count (150-450) K/mm3 MPV (6-9.5) fl Gran % (36.0-66.0) % Eos # (Auto) (0-0.5) Absolute Lymphs (auto) (1.0-4.6) Absolute Monos (auto) (0.0-1.3) Lymphocytes % (24.0-44.0) % Monocytes % (0.0-12.0) % Eosinophils % (0.00-5.0) % Basophils % (0.0-0.4) % Absolute Granulocytes (1.4-6.9) Basophils # (0-0.4) PT 16.9 H (8.83-12.87) SECONDS INR 1.45 (0.8-3.0) APTT 42.2 H (24.1-36.1) SECONDS Sodium (137-145) mmol/L Potassium (3.5-5.1) mmol/L Chloride (98-107) mmol/L Carbon Dioxide (22-30) mmol/L Anion Gap (5-15) MEQ/L BUN (9-20) mg/dL Creatinine (0.66-1.25) mg/dL Estimated GFR ML/MIN Glucose (74-106) mg/dL Calcium (8.4-10.2) mg/dL Total Bilirubin (0.2-1.3) mg/dL AST (17-59) U/L ALT (0-50) U/L Alkaline Phosphatase (38-126) U/L Troponin I 0.015 (0.000-0.034) ng/mL Serum Total Protein (6.3-8.2) g/dL Albumin (3.5-5.0) g/dL Amylase (30-110) U/L Lipase (23-300) U/L Ur Collection Type VOID Urine Color DARK YELLOW (YELLOW) Urine Appearance CLEAR (CLEAR) Urine pH 7.0 (5-6) Ur Specific [place] 1.010 (1.005-1.025) Urine Protein TRACE (Negative) Urine Ketones NEGATIVE (NEGATIVE) Urine Blood 5-10 (0-5) Devon/ul Urine Nitrite NEGATIVE (NEGATIVE) Urine Bilirubin MODERATE (NEGATIVE) Urine Urobilinogen 12 (0-1) mg/dL Ur Leukocyte Esterase NEGATIVE (NEGATIVE) Urine Microscopic RBC 2-5 (0-2) /HPF Ur Epithelial Cells RARE (FEW) /HPF Urine Culture Reflexed YES (NO) Urine Glucose NEGATIVE (NEGATIVE) mg/dL Slides for Path Review Specimen Received 04/20 225004/20/18 04/20/18 Range/Units 22:15 22:15 WBC 1.6 L* (4.0-10.5) K/mm3 RBC 3.82 L (4.1-5.6) M/mm3 Hgb 11.8 L (12.5-18.0) gm/dl Hct 36.9 L (42-50) % MCV 96.6 (78-100) fl MCH 30.8 (26-32) pg MCHC 32.0 (32-36) g/dl RDW 17.0 H (11.5-14.0) % Plt Count 71 L (150-450) K/mm3 MPV 11.8 H (6-9.5) fl Gran % 35.0 L (36.0-66.0) % Eos # (Auto) 0 (0-0.5) Absolute Lymphs (auto) 0.79 L (1.0-4.6) Absolute Monos (auto) 0.24 (0.0-1.3) Lymphocytes % 49.4 H (24.0-44.0) % Monocytes % 15.0 H (0.0-12.0) % Eosinophils % 0.0 (0.00-5.0) % Basophils % 0.6 (0.0-0.4) % Absolute Granulocytes 0.56 L (1.4-6.9) Basophils # 0.01 (0-0.4) PT (8.83-12.87) SECONDS INR (0.8-3.0) APTT (24.1-36.1) SECONDS Sodium 135 L (137-145) mmol/L Potassium 4.4 (3.5-5.1) mmol/L Chloride 102 (98-107) mmol/L Carbon Dioxide 27 (22-30) mmol/L Anion Gap 10.4 (5-15) MEQ/L BUN 9 (9-20) mg/dL Creatinine 0.83 (0.66-1.25) mg/dL Estimated GFR > 60.0 ML/MIN Glucose 226 H (74-106) mg/dL Calcium 8.4 (8.4-10.2) mg/dL Total Bilirubin 0.90 (0.2-1.3) mg/dL AST 107 H (17-59) U/L ALT 55 H (0-50) U/L Alkaline Phosphatase 349 H (38-126) U/L Troponin I (0.000-0.034) ng/mL Serum Total Protein 7.1 (6.3-8.2) g/dL Albumin 2.8 L (3.5-5.0) g/dL Amylase 41 (30-110) U/L Lipase 155 (23-300) U/L Ur Collection Type Urine Color (YELLOW) Urine Appearance (CLEAR) Urine pH (5-6) Ur Specific [place] (1.005-1.025) Urine Protein (Negative) Urine Ketones (NEGATIVE) Urine Blood (0-5) Devon/ul Urine Nitrite (NEGATIVE) Urine Bilirubin (NEGATIVE) Urine Urobilinogen (0-1) mg/dL Ur Leukocyte Esterase (NEGATIVE) Urine Microscopic RBC (0-2) /HPF Ur Epithelial Cells (FEW) /HPF Urine Culture Reflexed (NO) Urine Glucose (NEGATIVE) mg/dL Slides for Path Review YES Specimen Received - Progress Progress: improved Progress Note: 04/20/18 22:37 Patient with the decrease white blood cell count 1.6 this appears to be normal for the patient based on recent blood draws platelet count is also low at 17.0 04/20/18 23:03 Patient with a white count of 1.6 platelet count 79. Patient appears to be stable chest x-ray questionable fractured right lateral ninth rib on PA chest . EKG sinus bradycardia [address] or T wave changes first degree AV block. Patient's chemistry remarkable for a glucose of 226 mild elevation of SGPT of 55 AST of 107 and alkaline phosphatase of 349 patient's hemoglobin and hematocrit are 11.8 and 36.9. Patient's vitals are stable Orthostatic vitals are stable. Unfortunately unable to obtain head CT at this time. I've discussed the patient's case with Dr. Chisholm. Will await patient's urinalysis. Will plan to place patient on observation for serial neuro checks. He does not want to give patient IV fluids because of a history of heart failure. Will obtain CT when available - Departure Time of Disposition: 23:36 Departure Disposition: Observation Clinical Impression: Dizziness, right ninth rib fracture, history of pancytopenia and myelodysplas Accidental fall Qualifiers: Encounter type: initial encounter Qualified Code(s): W19.XXXA - Unspecified fall, initial encounter Condition: Fair Critical Care Time: No
[2018-04-20 22:20] LABS: BASOPHIL % 0.6 % (0.0-0.4); Basophil (Absolute #) 0.01 (0-0.4); Eosinophil (Absolute #) 0 (0-0.5); Granulocyte Absolute (ANC) 0.56 (1.4-6.9); Hematocrit 36.9 % (42-50); Hemoglobin 11.8 gm/dl (12.5-18.0); Lymphocyte (Absolute #) 0.79 (1.0-4.6); Lymphocytes % 49.4 % (24.0-44.0); Mean Cell Volume 96.6 fl (78-100); Mean Platelet Volume 11.8 fl (6-9.5); Monocyte (Absolute #) 0.24 (0.0-1.3); Platelet Count 71 K/mm3 (150-450); Red Blood Count 3.82 M/mm3 (4.1-5.6)
[2018-04-20] MEDS: Sodium Chloride 0.9% 1000 ML 1,000 ML IV SCH (22:26)
[2018-04-20 22:33] LABS: Mean Corpuscular Hemoglobin 30.8 pg (26-32); White Blood Count 1.6 K/mm3 (4.0-10.5)
[2018-04-20 22:37] LABS: INR 1.45 (0.8-3.0)
[2018-04-20 22:40] LABS: PTT 42.2 SECONDS (24.1-36.1)
[2018-04-20 22:42] LABS: ALBUMIN 2.8 g/dL (3.5-5.0); ALKALINE PHOSPHATASE 349 U/L (38-126); AMYLASE 41 U/L (30-110); ANION GAP 10.4 MEQ/L (5-15); BLOOD UREA NITROGEN 9 mg/dL (9-20); CHLORIDE 102 mmol/L (98-107); Calcium 8.4 mg/dL (8.4-10.2); Carbon Dioxide 27 mmol/L (22-30); Creatinine 1 0.83 mg/dL (0.66-1.25); Glucose 226 mg/dL (74-106); LIPASE 155 U/L (23-300); Potassium 4.4 mmol/L (3.5-5.1); SGOT/AST 107 U/L (17-59); SGPT/ALT 55 U/L (0-50); SODIUM 135 mmol/L (137-145); Total Protein 7.1 g/dL (6.3-8.2)
[2018-04-20 23:23] LABS: Appearance CLEAR (CLEAR); Leukocyte Esterase NEGATIVE (NEGATIVE); Nitrite NEGATIVE (NEGATIVE); Protein,Urine Dip TRACE (Negative)
[2018-04-20 23:24] LABS: Bilirubin MODERATE (NEGATIVE); Glucose NEGATIVE (NEGATIVE); Ketones NEGATIVE (NEGATIVE); Urobilinogen 12 mg/dL (0-1)
[2018-04-20 23:25] LABS: Epithelial Cells RARE /HPF (FEW)
[2018-04-21] MEDS ORDERED: NovoLOG Insulin SQ PRN (00:21)
[2018-04-21 01:24] LABS: Slide Review 1 YES
[2018-04-21 04:18] LABS: Granulocyte Absolute (ANC) 0.27 (1.4-6.9); Hematocrit 35.3 % (42-50); Hemoglobin 11.3 gm/dl (12.5-18.0); Mean Cell Volume 97.2 fl (78-100); Mean Corpuscular Hemoglobin 31.1 pg (26-32); Mean Platelet Volume 12.7 fl (6-9.5); Platelet Count 64 K/mm3 (150-450); Red Blood Count 3.63 M/mm3 (4.1-5.6); Red Cell Distribution Width 16.8 % (11.5-14.0)
[2018-04-21 04:34] LABS: White Blood Count 1.1 K/mm3 (4.0-10.5)
[2018-04-21 04:36] LABS: ALBUMIN 2.5 g/dL (3.5-5.0); ALKALINE PHOSPHATASE 309 U/L (38-126); BLOOD UREA NITROGEN 8 mg/dL (9-20); CHLORIDE 104 mmol/L (98-107); Calcium 8.2 mg/dL (8.4-10.2); Carbon Dioxide 28 mmol/L (22-30); Creatinine 1 0.71 mg/dL (0.66-1.25); Glucose 183 mg/dL (74-106); Potassium 4.1 mmol/L (3.5-5.1); SGOT/AST 90 U/L (17-59); SGPT/ALT 51 U/L (0-50); SODIUM 135 mmol/L (137-145); Total Protein 6.4 g/dL (6.3-8.2)
[2018-04-21] MEDS ORDERED: APRESOLINE 20 MG/ML INJ IV ONE (04:40)
[2018-04-21] MEDS ORDERED: OXYCODONE-ACETAMINOPHEN 10-325 PO PRN ×2 (04:45→09:31)
[2018-04-21] MEDS: Sodium Chloride 0.9% 1000 ML 1,000 ML IV SCH (04:55)
[2018-04-21 05:19] LABS: BAND 2 % (0.0-2.0); Lymphocytes 54 % (24-44); Monocyte 22 % (0.0-12.0); Neutrophils 22 % (36.-66.); Total Cells Counted 100
[2018-04-21 05:21] LABS: Platelet Estimate DECREASED (NORMAL)
[2018-04-21 05:22] LABS: ANISOCYTOSIS 2+
[2018-04-21 07:15] VITALS: BP 118/64; PULSE 63; O2SAT 95
--- NOTE | 2018-04-21 08:33 | XRAY ---
Indication: Status post fall. Multiple contiguous axial images obtained through the head without contrast. Comparison: None. Normal aging brain as evidenced by global atrophy and minimal periventricular degenerative micro-ischemia. No acute intracranial hemorrhage, abnormal extra-axial fluid collection, or mass effect. Fourth ventricle is midline without hydrocephalus. Bony calvarium intact. Visualized paranasal sinuses and mastoid air cells are clear. Impression: Nonacute senile brain. Comment: Preliminary interpretation was made by [facility]. No discrepancy. CT DI 48.07
--- NOTE | 2018-04-21 08:50 | PCM.HP ---
History of Present Illness - Chief Complaint Chief Complaint: dizziness Date: 04/23/18 History of Present Illness: is a 82 year old male. who has episodes of vertigo and fell at home with injury to his right ribs and may have hit his head no loc he is feeling better today and sore in the ribs otherwise no longer dizzy no deficits or neck pain. he is asking if he can go home. - Review of Systems Constitutional: No Fever, No Chills Eyes: No Symptoms Ears, Nose, & Throat: No Symptoms Respiratory: No Cough, No Short Of Breath Cardiac: No Chest Pain, No Edema, No Syncope Abdominal/Gastrointestinal: No Abdominal Pain, No Nausea, No Vomiting, No Diarrhea Genitourinary Symptoms: No Dysuria Musculoskeletal: Back Pain, No Neck Pain Skin: No Rash Neurological: Dizziness, Gait Changes, No Focal Weakness, No Sensory Changes Psychological: No Symptoms Endocrine: No Symptoms Hematologic/Lymphatic: No Symptoms Immunological/Allergic: No Symptoms Medications & Allergies Home Medications: Home Medication List Rosuvastatin Calcium [Crestor] 20 mg PO HS 08/01/14 [History Confirmed 04/21/18] Polyethylene Glycol 3350 [Miralax] 17 gm PO BID 07/18/15 [History Confirmed ] Levothyroxine Sodium 50 Mcg [Synthroid 50 Mcg] 50 mcg PO DAILY #0 tablet 07/20/15 [Rx Confirmed 04/21/18] Omeprazole 20 MG [Prilosec 20 mg] 20 mg PO DAILY 11/26/16 [History Confirmed ] Oxycodone / APAP 10/325 mg [Oxycodone-Acetaminophen 10-325] 1 tab PO Q6HPRN PRN 11/26/16 [History Confirmed 04/21/18] Dicyclomine HCl 20 mg [Bentyl 20 mg] 20 mg PO QID 12/08/16 [History Confirmed 04/21/18] Enalapril Maleate 10 mg [Vasotec 10 MG] 10 mg PO DAILY 12/08/16 [History Confirmed 04/21/18] Sucralfate 1 gm [Carafate 1 GM] 1 gm PO ACHS 12/08/16 [History Confirmed 04/21/18] Insulin Lispro [Humalog Kwikpen U-100] 1 unit SQ UD 01/09/17 [History Confirmed 04/21/18] Pioglitazone HCl [Actos] 15 mg PO DAILY 01/09/17 [History Confirmed 04/21/18] Apixaban [Eliquis 5 mg Tablet] 5 mg PO BID 04/21/18 [History Confirmed ] Gabapentin 300 mg PO BID 04/21/18 [History Confirmed 04/21/18] Metoprolol Succinate 25 mg Xl* [Toprol-Xl 25MG Tablets] 50 mg PO DAILY [History Confirmed 04/21/18] Nitroglycerin 0.4 mg Tablet [Nitrostat 0.4 MG Tablet] 0.4 mg SL UD [History Confirmed 04/21/18] Allergies/Adverse Reactions: Allergies Allergy/AdvReac Type Severity Reaction Status Date / Time promethazine Allergy Verified 04/20/18 21:36 - Past Medical History Past Medical History: Yes Neurological History: No Pertinent History ENT History: No Pertinent History Cardiac History: High Cholesterol, Hypertension Respiratory History: No Pertinent History Endocrine Medical History: Diabetes Type II Musculoskelatal History: Arthritis, Fractures GI Medical History: GERD, Other History: No Pertinent History Pyscho-Social History: No Pertinent History Male Reproductive Disorders: No Pertinent History Comment: pt c/o stomach pain that radiates - Past Surgical History Past Surgical History: Yes Neuro Surgical History: No Pertinent History Cardiac History: CABG Respiratory Surgery: No Pertinent History GI Surgical History: Cholecystectomy Genitourinary Surgical Hx: No Pertinent History Musculskeletal Surgical Hx: Joint Replacement Male Surgical History: No Pertinent History Other Surgical History: BOTH KNEE REPLACEMENT - Social History Smoking Status: Heavy tobacco smoker How long have you smoked: 30 Exposure to second hand smoke: No Alcohol: None Drug Use: none - Physical Exam Vital Signs: Vital Signs - 24 hr Temp Pulse Resp BP Pulse Ox 04/21/18 08:00 20 04/21/18 07:15 98 F 63 20 118/64 95 04/21/18 04:00 97.9 F 55 L 18 204/81 93 L 04/21/18 03:26 95 04/21/18 02:00 93 L 06/15/18 01:29 59 L 176/66 06/15/18 00:41 98.6 F 61 20 198/79 93 L 04/21/18 00:21 98.6 F 61 20 198/79 93 L 04/20/18 23:40 57 L 24 161/54 94 L 04/20/18 22:50 56 L 18 162/65 94 L 04/20/18 22:18 57 L 22 167/59 94 L 04/20/18 21:18 98.7 F 58 L 18 95 General Appearance: no apparent distress, alert, obese Neurologic Exam: alert, oriented x 3, cooperative, normal mood/affect, nml cerebellar function, nml station & gait, sensation nml, No motor deficits Eye Exam: PERRL/EOMI, eyes nml inspection Ears, Nose, Throat Exam: normal ENT inspection, pharynx normal, moist mucous membranes Neck Exam: normal inspection, non-tender, supple, full range of motion Respiratory Exam: normal breath sounds, lungs clear, other (tenderness right lower rib area laterally), No respiratory distress Cardiovascular Exam: regular rate/rhythm, normal heart sounds, normal peripheral pulses Gastrointestinal/Abdomen Exam: soft, normal bowel sounds, No tenderness, No mass Back Exam: normal inspection, No CVA tenderness, No vertebral tenderness Extremity Exam: normal inspection, pelvis stable Skin Exam: normal color, warm, dry, No rash Lymphatic Exam: No adenopathy Results - Labs Lab/Micro Results: Accuchecks Date 04/21/18 Time 07:30 Accucheck Value: 173 Lab Results-Last 24 Hours 04/21/18 04/21/18 04/21/18 Range/Units 00:45 03:45 04:00 WBC 1.1 L* (4.0-10.5) K/mm3 RBC 3.63 L (4.1-5.6) M/mm3 Hgb 11.3 L (12.5-18.0) gm/dl Hct 35.3 L (42-50) % MCV 97.2 (78-100) fl MCH 31.1 (26-32) pg MCHC 32.0 (32-36) g/dl RDW 16.8 H (11.5-14.0) % Plt Count 64 L (150-450) K/mm3 MPV 12.7 H (6-9.5) fl Absolute Granulocytes 0.27 L (1.4-6.9) Segmented Neutrophils 22 L (36.-66.) % Band Neutrophils 2 (0.0-2.0) % Lymphocytes (Manual) 54 H (24-44) % Monocytes (Manual) 22 H (0.0-12.0) % Platelet Estimate DECREASED (NORMAL) RBC Morphology ABNORMAL Anisocytosis 2+ Sodium (137-145) mmol/L Potassium (3.5-5.1) mmol/L Chloride (98-107) mmol/L Carbon Dioxide (22-30) mmol/L Anion Gap (5-15) MEQ/L BUN (9-20) mg/dL Creatinine (0.66-1.25) mg/dL Estimated GFR ML/MIN Glucose (74-106) mg/dL Calcium (8.4-10.2) mg/dL Total Bilirubin (0.2-1.3) mg/dL AST (17-59) U/L ALT (0-50) U/L Alkaline Phosphatase (38-126) U/L Troponin I 0.017 0.016 (0.000-0.034) ng/mL Serum Total Protein (6.3-8.2) g/dL Albumin (3.5-5.0) g/dL 04/21/18 04/21/18 Range/Units 04:00 06:45 WBC (4.0-10.5) K/mm3 RBC (4.1-5.6) M/mm3 Hgb (12.5-18.0) gm/dl Hct (42-50) % MCV (78-100) fl MCH (26-32) pg MCHC (32-36) g/dl RDW (11.5-14.0) % Plt Count (150-450) K/mm3 MPV (6-9.5) fl Absolute Granulocytes (1.4-6.9) Segmented Neutrophils (36.-66.) % Band Neutrophils (0.0-2.0) % Lymphocytes (Manual) (24-44) % Monocytes (Manual) (0.0-12.0) % Platelet Estimate (NORMAL) RBC Morphology Anisocytosis Sodium 135 L (137-145) mmol/L Potassium 4.1 (3.5-5.1) mmol/L Chloride 104 (98-107) mmol/L Carbon Dioxide 28 (22-30) mmol/L Anion Gap 8.0 (5-15) MEQ/L BUN 8 L (9-20) mg/dL Creatinine 0.71 (0.66-1.25) mg/dL Estimated GFR > 60.0 ML/MIN Glucose 183 H (74-106) mg/dL Calcium 8.2 L (8.4-10.2) mg/dL Total Bilirubin 0.70 (0.2-1.3) mg/dL AST 90 H (17-59) U/L ALT 51 H (0-50) U/L Alkaline Phosphatase 309 H (38-126) U/L Troponin I 0.024 (0.000-0.034) ng/mL Serum Total Protein 6.4 (6.3-8.2) g/dL Albumin 2.5 L (3.5-5.0) g/dL Accuchecks Date 04/21/18 Time 07:30 Accucheck Value: 173 Assessment/Plan (1) Rib fracture Status: Acute Qualifiers: Encounter type: initial encounter Rib fracture type: single rib Fracture type: closed Laterality: right Qualified Code(s): S22.31XA - Fracture of one rib, right side, initial encounter for closed fracture Assessment & Plan: right 9th rib Code(s): S22.39XA - FRACTURE OF ONE RIB, UNSP SIDE, INIT FOR CLOS FX (2) Accidental fall Status: Acute Qualifiers: Encounter type: initial encounter Qualified Code(s): W19.XXXA - Unspecified fall, initial encounter Assessment & Plan: he was having vertigo which he has chronically intermittently and fell with he felt hitting his head without loss of consciousness. the CT machine was down at time of presentation to ED and he had no focal deficits or meningismus and he was admitted for further observation and to obtain CT which was preformed and negative for any bleeding he is sore and his ribs hurt but his vertigo is better today and he is asking to go home. Will d/c to home with outpatient close follow up Code(s): W19.XXXA - UNSPECIFIED FALL, INITIAL ENCOUNTER (3) CHF (congestive heart failure) Status: Chronic Qualifiers: Heart failure type: unspecified Heart failure chronicity: chronic Qualified Code(s): I50.9 - Heart failure, unspecified Code(s): I50.9 - HEART FAILURE, UNSPECIFIED (4) Pancytopenia Status: Chronic Assessment & Plan: follows with Dr. Linn chronic finding Code(s): D61.818 - OTHER PANCYTOPENIA (5) Type 2 diabetes mellitus Status: Chronic
--- NOTE | 2018-04-21 08:51 | PCM.DCORD ---
- Discharge Discharge Date: 04/21/18 Disposition: Home, Self-Care Condition: Fair Prescriptions: Continue Rosuvastatin Calcium [Crestor] 20 mg PO HS Polyethylene Glycol 3350 [Miralax] 17 gm PO BID Levothyroxine Sodium 50 Mcg [Synthroid 50 Mcg] 50 mcg PO DAILY #0 tablet Omeprazole 20 MG [Prilosec 20 mg] 20 mg PO DAILY Oxycodone / APAP 10/325 mg [Oxycodone-Acetaminophen 10-325] 1 tab PO Q6HPRN PRN PRN Reason: Pain Enalapril Maleate 10 mg [Vasotec 10 MG] 10 mg PO DAILY Dicyclomine HCl 20 mg [Bentyl 20 mg] 20 mg PO QID Sucralfate 1 gm [Carafate 1 GM] 1 gm PO ACHS Insulin Lispro [Humalog Kwikpen U-100] 1 unit SQ UD Pioglitazone HCl [Actos] 15 mg PO DAILY Nitroglycerin 0.4 mg Tablet [Nitrostat 0.4 MG Tablet] 0.4 mg SL UD Metoprolol Succinate 25 mg Xl* [Toprol-Xl 25MG Tablets] 50 mg PO DAILY Gabapentin 300 mg PO BID Apixaban [Eliquis 5 mg Tablet] 5 mg PO BID Follow up with: MARU CURTIS [Primary Care Provider] - 1 Week LAUREN COLEMAN [ACTIVE STAFF] - 1 Week
--- NOTE | 2018-04-21 09:07 | XRAY ---
Indication: Bilateral pain following fall. Comparison: January 09, 2017. Portable chest again slightly underinflated with stable right midlung subsegmental atelectasis/scarring and focal eventration of the right hemidiaphragm. No focal infiltrate, consolidation, or large effusion. Heart is not enlarged again demonstrating previous CABG surgery. Bony thorax again demonstrates osteopenia and degenerative changes with new nondisplaced lateral right 9th rib fracture. Impression: 1. Right 9th rib fracture without hemothorax or pneumothorax. 2. Stable right midlung atelectasis/scarring. No new cardiopulmonary abnormalities.
[2018-04-21] MEDS ORDERED: Nitrostat 0.4 MG Tablet SL SCH (09:45)
[2018-04-21] MEDS ORDERED: NON-FORMULARY ITEM (Omeprazole 20 Mg [Prilosec 20 Mg] 20 MG) PO SCH (10:00)
[2018-04-21] MEDS ORDERED: NEURONTIN 300 MG PO SCH (10:00)
[2018-04-21] MEDS ORDERED: Toprol-Xl 25MG Tablets PO SCH (10:00)
[2018-04-21] MEDS ORDERED: Toprol Xl 50 MG PO SCH (10:00)
[2018-04-21] MEDS ORDERED: Vasotec 10 MG PO SCH (10:00)
[2018-04-21] MEDS ORDERED: SYNTHROID 50 MCG PO SCH (10:00)
[2018-04-21] MEDS ORDERED: NON-FORMULARY ITEM (Pioglitazone Hcl [Actos] 15 MG) PO SCH (10:00)
[2018-04-21] MEDS ORDERED: BENTYL 20 MG PO SCH (10:00)
[2018-04-21] MEDS ORDERED: Protonix 40MG Tablet PO SCH (10:00)
[2018-04-21] MEDS ORDERED: Miralax Powder 17GM PACKET PO SCH (10:00)
[2018-04-21] MEDS ORDERED: Actos 30 MG PO SCH (10:00)
[2018-04-21] MEDS ORDERED: ELIQUIS 5 MG TABLET PO SCH (10:00)
[2018-04-21] MEDS ORDERED: Carafate 1 GM PO SCH (11:30)
[2018-04-21] MEDS ORDERED: NON-FORMULARY ITEM (Rosuvastatin Calcium [Crestor] 20 MG) PO SCH (22:00)
[2018-04-21] MEDS ORDERED: ZOCOR 20MG PO SCH (22:00)
== END 2018-04-21 11:03 | disposition home or self-care (01) ==
LOC: ED 21:11 → MED SURG 04-21 00:01
PROVIDERS: ADMIT Family Medicine; ATTEND Family Medicine
DX: S22.39XA Fracture of one rib, unspecified side, initial encounter for closed fracture (principal); W19.XXXA Unspecified fall, initial encounter; I50.9 Heart failure, unspecified; D61.818 Other pancytopenia; E11.9 Type 2 diabetes mellitus without complications; Z79.4 Long term (current) use of insulin; Z79.899 Other long term (current) drug therapy
CPT/HCPCS: 36000; 36415; 70450; 71045; 80053; 81000; 82150; 82962; 83690; 84484; 85025; 85610; 85730; 87086; 93005; 93268; 99285; J0360; A9270-GY; G0378

== ENCOUNTER 2018-05-12 11:21 | Emergency (ER) | payer MEDICARE ==
[2018-05-12 11:36] VITALS: BP 157/71; PULSE 53; O2SAT 98
--- NOTE | 2018-05-12 11:43 | ERPHSYRPT ---
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 This patient states he struck his posterior left arm on a bed while at the electrical subcontractor's office 3 days ago. The patient's son states patient received a skin tear he's been putting a dressing on it but he states this bleeding today. Past medical history includes hypercholesterolemia, high blood pressure, diabetes, arthritis, fractures, GERD, chronic stomach pain. Past surgical history includes CABG, cholecystectomy, bilateral knee replacement Social history positive tobacco use Occurred: days ago (3 days ago) Method of Injury: other (hit left posterior arm on a bed at a electrical subcontractor's off ) Severity of Pain-Max: mild Severity of Pain-Current: none Extremities Pain Location: arm: left Modifying Factors: Improves With: nothing Associated Symptoms: other (bleeding from skin tear left arm) Allergies/Adverse Reactions: promethazine Allergy (Verified 04/20/18 21:36) Home Medications: Rosuvastatin Calcium [Crestor] 20 mg PO HS 08/01/14 [History] Polyethylene Glycol 3350 [Miralax] 17 gm PO BID 07/18/15 [History] Omeprazole 20 MG [Prilosec 20 mg] 20 mg PO DAILY 11/26/16 [History] Oxycodone / APAP 10/325 mg [Oxycodone-Acetaminophen 10-325] 1 tab PO Q6HPRN PRN 11/26/16 [History] Dicyclomine HCl 20 mg [Bentyl 20 mg] 20 mg PO QID 12/08/16 [History] Enalapril Maleate 10 mg [Vasotec 10 MG] 10 mg PO DAILY 12/08/16 [History] Sucralfate 1 gm [Carafate 1 GM] 1 gm PO ACHS 12/08/16 [History] Insulin Lispro [Humalog Kwikpen U-100] 1 unit SQ UD 01/09/17 [History] Pioglitazone HCl [Actos] 15 mg PO DAILY 01/09/17 [History] Apixaban [Eliquis 5 mg Tablet] 5 mg PO BID 04/21/18 [History] Gabapentin 300 mg PO BID 04/21/18 [History] Metoprolol Succinate 25 mg Xl* [Toprol-Xl 25MG Tablets] 50 mg PO DAILY [History] Nitroglycerin 0.4 mg Tablet [Nitrostat 0.4 MG Tablet] 0.4 mg SL UD [History] Hx Tetanus, Diphtheria Vaccination/Date Given: Yes Hx Influenza Vaccination/Date Given: Yes Hx Pneumococcal Vaccination/Date Given: Yes Immunizations Up to Date: Yes - Review of Systems Constitutional: No Fever, No Chills Eyes: No Symptoms Ears, Nose, & Throat: No Symptoms Respiratory: No Cough, No Dyspnea Cardiac: No Chest Pain, No Edema, No Syncope Abdominal/Gastrointestinal: No Abdominal Pain, No Nausea, No Vomiting, No Diarrhea Genitourinary Symptoms: No Dysuria Musculoskeletal: No Back Pain, No Neck Pain Skin: Other (bleeding from skin tear left posterior arm) Neurological: No Dizziness, No Focal Weakness, No Sensory Changes Psychological: No Symptoms Endocrine: No Symptoms All Other Systems: Reviewed and Negative - Past Medical History Pertinent Past Medical History: Yes Neurological History: No Pertinent History ENT History: No Pertinent History Cardiac History: High Cholesterol, Hypertension Respiratory History: No Pertinent History Endocrine Medical History: Diabetes Type II Musculoskeletal History: Arthritis, Fractures GI Medical History: GERD, Other History: No Pertinent History Psycho-Social History: No Pertinent History Male Reproductive Disorders: No Pertinent History Other Medical History: pt c/o stomach pain that radiates - Past Surgical History Past Surgical History: Yes Neuro Surgical History: No Pertinent History Cardiac: CABG Respiratory: No Pertinent History Gastrointestinal: Cholecystectomy Genitourinary: No Pertinent History Musculoskeletal: Joint Replacement Male Surgical History: No Pertinent History Other Surgical History: BOTH KNEE REPLACEMENT - Social History Smoking Status: Heavy tobacco smoker How long have you smoked: 30 Exposure to second hand smoke: No Alcohol Use: None Drug Use: none Patient Lives Alone: No - Nursing Vital Signs Nursing Vital Signs: Initial Vital Signs Temperature 98.6 F 05/12/18 11:22 Pulse Rate 53 L 05/12/18 11:22 Respiratory Rate 18 05/12/18 11:22 Blood Pressure 157/71 05/12/18 11:22 O2 Sat by Pulse Oximetry 98 05/12/18 11:22 Pain Scale Pain Intensity 0 - Physical Exam General Appearance: alert Eyes, Ears, Nose, Throat Exam: moist mucous membranes Neck Exam: non-tender, supple Cardiovascular/Respiratory Exam: chest non-tender, normal breath sounds, regular rate/rhythm, no respiratory distress Abdominal Exam: non-tender, No guarding Back Exam: normal inspection, No vertebral tenderness Shoulder Exam: normal inspection, non-tender, no evidence of injury, normal ROM Elbow/Forearm Exam: No normal inspection (patient with ecchymosis left posterior distal arm, 1.5 cm skin tear no active bleeding at this time) Wrist Exam: normal inspection, non-tender, no evidence of injury, normal ROM Hand Exam: normal inspection, non-tender, no evidence of injury, normal ROM Neuro/Tendon Exam: normal sensation, normal motor functions Mental Status Exam: alert, oriented x 3, cooperative Skin Exam: other (ecchymosis left posteriorarm, 1.5 cm skin tear left posterior arm) SpO2 Interpretation: normal (98%) SpO2: 98 Oxygen Delivery: Room Air - Course Nursing assessment & vital signs reviewed: Yes Ordered Tests: Active Orders 24 hr Category Date Time Status Wound Care STAT Care 05/12/18 11:36 Active - Progress Progress: improved Progress Note: 05/12/18 11:41 This is an 82-year-old white male who was at his electrical subcontractor's office apparently struck his left posterior arm on the bed 3 days ago. He apparently received a skin tear. Patient's son states that he was bleeding this morning from the skin tear. Patient arrives with a dressing in place on the left posterior arm he has a approximately 4 cm ecchymosis on the left posterior arm. He has full range of motion to the left shoulder arm wrist hand and fingers. He has a 1.5 cm skin tear which is not bleeding at this time. Will have nurse clean the area and apply Surgicel dressing... Patient's tetanus is up-to-date. - Departure Time of Disposition: 11:43 Departure Disposition: Home Clinical Impression: Skin tear of left upper extremity Condition: Fair Critical Care Time: No Referrals: MARU CURTIS [Primary Care Provider] - Additional Instructions: Return or follow-up with your family doctor if problems.
== END 2018-05-12 12:00 | disposition home or self-care (01) ==
LOC: ED 11:21
DX: S41.112A Laceration without foreign body of left upper arm, initial encounter (principal); W22.03XA Walked into furniture, initial encounter; Y92.531 Health care provider office as the place of occurrence of the external cause; Z79.899 Other long term (current) drug therapy
CPT/HCPCS: 99283